=== PATIENT | male | born 1980 | race Hispanic/Latino ===

== ENCOUNTER 2019-03-25 12:58 | Emergency (ER) | payer OTHER ==
[2019-03-25] MEDS ORDERED: DiphenhydrAMINE HCL 50 MG/ML VIAL ONE (13:31)
[2019-03-25] MEDS ORDERED: PROCHLORPERAZINE EDISYLATE 10 MG/2 ML VIAL ONE (13:31)
[2019-03-25] MEDS ORDERED: SODIUM CHLORIDE 0.9% 1000ML 1,000 ML IV ONE (13:31)
[2019-03-25 13:39] LABS: BASOPHILS % (AUTO) 0.7 % (0.0-5.0); EOSINOPHILS % (AUTO) 2.2 % (0.0-8.0); HEMATOCRIT 48.3 % (42-54); LYMPHOCYTES % (AUTO) 23.4 % (21.0-51.0); MEAN CORPUSCULAR HEMOGLOBIN 30.8 pg (27.0-33.0); MEAN CORPUSCULAR HGB CONC 34.1 g/dL (32.0-36.0); MEAN CORPUSCULAR VOLUME 90.4 fL (79-99); MONOCYTES % (AUTO) 9.9 % (3.0-13.0); NEUTROPHILS % (AUTO) 63.8 % (40.0-77.0); NUCLEATED RED BLOOD CELLS 0.1 % (0.0-0.19); PLATELET COUNT (AUTO) 254 K/uL (130-400); RED BLOOD CELL COUNT(AUTO) 5.34 MIL/uL (4.50-6.20); RED CELL DISTRIBUTION WIDTH 14.7 % (11.0-15.5); WHITE BLOOD COUNT (AUTO) 6.4 K/uL (4.8-10.8)
[2019-03-25 13:52] LABS: CREATININE 1.2 mg/dL (0.5-1.5); POTASSIUM 4.1 mmol/L (3.5-5.1)
[2019-03-25 13:58] LABS: ALBUMIN 3.6 g/dL (3.5-5.0); BILIRUBIN,TOTAL 0.4 mg/dL (0.2-1.0); TOTAL PROTEIN, SERUM 7.1 g/dL (6.0-8.3)
== END 2019-03-25 15:30 | disposition home or self-care (01) ==
LOC: EDH 12:58
DX: G43.909 Migraine, unspecified, not intractable, without status migrainosus (principal); I10 Essential (primary) hypertension; E78.00 Pure hypercholesterolemia, unspecified
CPT/HCPCS: 36415; 70450; 80053; 85025; 96374; 96375; 99285; J0780; J1200; J7030

== ENCOUNTER → 2019-04-16 | Outpatient (CLI) | payer OTHER | END | disposition home or self-care (01) | LOC: SHCH 13:38 | PROVIDERS: ATTEND Internal Medicine Cardiovascular Disease | DX: I11.9 Hypertensive heart disease without heart failure (principal); R01.1 Cardiac murmur, unspecified; R00.2 Palpitations | CPT/HCPCS: 93306 ==

== ENCOUNTER 2021-04-16 07:57 | Day surgery (SDC) | payer OTHER ==
[2021-04-12 09:00] VITALS: BP 115/88
[2021-04-12] MEDS: CEFAZOLIN SODIUM 1 GM VIAL IVP SCH (10:00)
[~2021-04-16] VITALS: Ht 182.9 cm; Wt 105.7 kg
[2021-04-16] VITALS (13 sets, daily range): BP systolic 112–123; BP diastolic 61–79
[~2021-04-16 07:57] MED LIST: AMLO-258 PO; SIMV5TAB58 PO
[2021-04-16] MEDS ORDERED: LACTATED RINGERS 1000ML 1,000 ML IV ONE (08:19)
[2021-04-16] MEDS ORDERED: SUCCINYLCHOLINE CHLORIDE 20 MG/ML 10 ML VIAL ONE (09:20)
[2021-04-16] MEDS ORDERED: PROPOFOL 10 MG/ML 20ML VIAL IV ONE (09:20)
[2021-04-16] MEDS ORDERED: LIDOCAINE PF 100MG/5ML (2%) SYRINGE 5ML ONE (09:20)
[2021-04-16] MEDS ORDERED: MIDAZOLAM HCL 1 MG/ML 2ML VIAL ONE (09:20)
[2021-04-16] MEDS ORDERED: ROCURONIUM 10MG/1ML SYR 10 MG/ML ML ONE (09:21)
[2021-04-16] MEDS ORDERED: FENTANYL CITRATE PF 50 MCG/1 ML 2ML VIAL ONE (09:21)
[2021-04-16] MEDS ORDERED: AMLO-257 PO (10:08)
[2021-04-16] MEDS ORDERED: PRAS50TA PO (10:08)
[2021-04-16] MEDS ORDERED: SIMV10TA97 PO (10:08)
[2021-04-16] MEDS ORDERED: TOPI50TA24 PO (10:08)
[2021-04-16] MEDS ORDERED: PROPANOLOL PO (10:08)
[2021-04-16] MEDS: CEFAZOLIN SODIUM 1 GM VIAL IVP SCH (10:42)
[2021-04-16] MEDS ORDERED: BUPIVACAINE/PF 0.25% 30ML VIAL IJ ONE (10:55)
[2021-04-16] MEDS ORDERED: NEOSTIGMINE 5MG/5ML SYR IV ONE (11:06)
[2021-04-16] MEDS ORDERED: GLYCOPYRROLATE 1 MG/5 ML SYRINGE ONE (11:06)
[2021-04-16] MEDS ORDERED: ONDANSETRON 4MG INJ ONE (11:11)
[2021-04-16] MEDS ORDERED: DEXAMETHASONE SOD PHOSPHATE 4 MG/ML 1ML VIAL ONE (11:11)
[2021-04-16] MEDS ORDERED: SUGAMMADEX SODIUM 200 MG/2 ML VIAL IV ONE (11:19)
[2021-04-16] MEDS ORDERED: MEPERIDINE-PF 25 MG/ML SYG ONE ×2 (11:27→11:34)
== END 2021-04-16 13:02 | disposition home or self-care (01) ==
LOC: DAH 07:57
PROVIDERS: ATTEND Surgery
DX: K42.9 Umbilical hernia without obstruction or gangrene (principal); Z20.822 Contact with and (suspected) exposure to COVID-19; I10 Essential (primary) hypertension; E66.9 Obesity, unspecified; Z68.41 Body mass index [BMI] 40.0-44.9, adult; Z79.899 Other long term (current) drug therapy
CPT/HCPCS: 49585; 87635; A4215; A4221; A4222; A4223; A4452; A4600; A4649; A4663; A4930; A6260; C9803; J0330; J0690; J1100; J2001; J2175 ×2; J2250; J2405; J2704; J2710; J3010; J3490 ×2; J7120